=== PATIENT | female | born 1945 | race Caucasian/White ===

== ENCOUNTER → 2017-02-25 | Outpatient (CLI) | payer MEDICARE, BC ==
[~2017-02-25] MED LIST: ASPIRIN EC325 MG PO; BACTROBAN NASAL1 G1 BOTH NARES; CALCIUM + D 601 EACH PO; CALTRATE 600 +1 EAC2 PO; CALTRATE 600600 MG PO; CENTRUM COMPLE1 EACH PO; CIPROFLOXACIN500 M1 PO; COLESTID1 GM PO; COUMADIN1 MG PO; ENDOCET 5-3251 EACH PO; GLUCOPHAGE500 MG PO; HYDROCODON-ACE1 EAC7 PO; IMODIUM MS REL1 EACH PO; IRON325 M1 PO; LEVAQUIN250 MG PO; LIDODERM 5% P1 PATCH TD; MOTRIN800 MG PO; NEXIUM40 MG PO; NORCO 5/3251 TABLET PO; NORVASC5 MG PO; ONDANSETRON4 MG/2 ML PO; OXYCODONE-ACET1 EACH PO; PERCOCET 5/31 TABLET PO; SENNA-TIME S T1 EACH PO; VITAMIN C500 M1 PO; VOLTAREN75 MG PO; ZESTRIL10 MG PO; ZESTRIL5 MG PO; ZOFRAN4 MG PO; ZOFRAN8 MG PO; ZOLOFT25 MG PO; ZOLOFT50 MG PO
== END | disposition home or self-care (01) ==
LOC: CDC 11:57
DX: Z01.810 Encounter for preprocedural cardiovascular examination (principal); K43.2 Incisional hernia without obstruction or gangrene
CPT/HCPCS: 93000

== ENCOUNTER 2017-03-19 10:15 | Day surgery (SDC) | payer OTHER, BC ==
[~2017-03-19] VITALS: Ht 162.6 cm; Wt 90.0 kg
[~2017-03-19 10:15] MED LIST changes: +CELEBREX200 MG PO
[2017-03-19] MEDS ORDERED: TURMERIC500 M1 PO (10:51)
[2017-03-19 10:59] VITALS: BP 143/76
[2017-03-19 11:22] LABS: POINT-OF-CARE METER ID UU14174212
[2017-03-19 12:52] LABS: METH RESISTANT S AUREUS PCR NEGATIVE (NEGATIVE); PROBE CHECK PASS; SPECIMEN PROCESSING CONTROL PASS
[2017-03-19] MEDS ORDERED: NORCO 5/3251 TABLET PO (14:51)
[2017-03-19 16:14] VITALS: BP 145/59
[2017-03-19 16:20] LABS: POINT-OF-CARE METER ID UU14174212
[2017-03-19 17:30] VITALS: BP 120/80
[2017-03-19 18:30] VITALS: BP 156/70
== END 2017-03-19 18:45 | disposition home or self-care (01) ==
LOC: SDC 10:15
PROVIDERS: Surgery
PROC: 0WUF4JZ Supplement Abdominal Wall with Synthetic Substitute, Percutaneous Endoscopic Approach (ICD-10-PCS; principal; 2017-03-19)
DX: K43.2 Incisional hernia without obstruction or gangrene (principal); M19.90 Unspecified osteoarthritis, unspecified site; I10 Essential (primary) hypertension; K21.9 Gastro-esophageal reflux disease without esophagitis; E11.9 Type 2 diabetes mellitus without complications; Z79.84 Long term (current) use of oral hypoglycemic drugs; F41.1 Generalized anxiety disorder; K58.9 Irritable bowel syndrome, unspecified; Z85.828 Personal history of other malignant neoplasm of skin
CPT/HCPCS: 82948; 87641; C1781; J0690; J1170; J2250; J3010; S0020